=== PATIENT | male | born 1950 | race Caucasian/White ===

== ENCOUNTER 2017-02-09 09:15 | Emergency (ER) | payer MEDICARE, OTHER ==
--- NOTE | 2017-02-09 09:29 | Emergency Department Record ---
History of Present Illness - General Chief Complaint: Chest Pain Stated Complaint: CHEST PAIN Time Seen by Provider: 02/09/17 09:27 Source: Patient Mode of Arrival: Ambulatory Limitations: No limitations - History of Present Illness Initial Comments: The patient is here due to an 11.5 hour hx of chest discomfort. The pain is mainly in the lower chest and epigastric area. It is a dull pain that intermittently radiates to the back. He has had significant sweating and nausea with it and only mild RIGOBERTO. The patient has no known cardiac hx but does have significant risk factors of tobacco use, high cholesterol and family hx. He has no hx of similar issues with any hx of cardiac dz. MD Complaint: Chest pain Onset/Timin -: Hour(s) Onset: During rest Pain Location: Epigastric, Other Severity: Moderate Severity scale (1-10): 6 Quality: Dull Consistency: Constant Improves With: Nothing Worsens With: Nothing Anginal Symptoms: Nausea Treatments Prior to Arrival: Aspirin - Related Data Home Medications Medication Instructions Recorded Confirmed Last Taken No Home Med [NO HOME MEDS] 02/09/17 02/09/17 Unknown Allergies Allergy/AdvReac Type Severity Reaction Status Date / Time No Known Drug Allergies Allergy Verified 02/09/17 09:31 Travel Screening - Travel/Exposure Within Last 30 Days Have you traveled within the last 30 days?: No - Travel/Exposure Within Last Year Have you traveled outside the [place] in the last year?: No - Additonal Travel Details Have you been exposed to anyone with a communicable illness?: No Review of Systems Constitutional: Denies: Chills, Fever Eyes: Denies: Eye discharge ENT: Denies: Congestion Respiratory: Denies: Cough, Dyspnea Past Medical History - SOCIAL HISTORY Smoking Status: Current every day smoker Alcohol Use: None Drug Use: Heavy Drug Use Detail:: Marijuana - RESPIRATORY Hx Respiratory Disorders: No - CARDIOVASCULAR Hx Cardio Disorders: No - NEURO Hx Neuro Disorders: No - GI Hx GI Disorders: No - Hx Genitourinary Disorders: No - ENDOCRINE Hx Endocrine Disorders: No - MUSCULOSKELETAL Hx Musculoskeletal Disorders: Yes Hx Gout: Yes - PSYCH Hx Psych Problems: No - HEMATOLOGY/ONCOLOGY Hx Hematology/Oncology Disorders: No Family Medical History Any Significant Family History?: No Physical Exam - General General Appearance: Alert, Oriented x3, Cooperative, No acute distress - Head Head exam: Atraumatic, Normocephalic, Normal inspection - Eye Eye exam: Normal appearance, PERRL - Neck Neck exam: Normal inspection, Full ROM. negative: Tenderness - Respiratory Respiratory exam: Normal lung sounds bilaterally. negative: Respiratory distress - Cardiovascular Cardiovascular Exam: Regular rate, Normal rhythm, Normal heart sounds - GI/Abdominal GI/Abdominal exam: Soft, Normal bowel sounds. negative: Tenderness - Extremities Extremities exam: Normal inspection, Full ROM, Normal capillary refill. negative: Tenderness - Neurological Neurological exam: Alert, Normal gait. negative: Abnormal gait, Motor sensory deficit - Psychiatric Psychiatric exam: negative: Agitated, Anxious Course Vital Signs 02/09/17 09:17 Temperature 97.6 F Pulse Rate 62 Respiratory 16 Rate Blood Pressure 131/79 Pulse Ox 98 - Reevaluation(s) Reevaluation #1: The patient is resting comfortably but is still having mild discomfort and pressure. We will be starting a Nitro drip and Heparin drip due to the high probability of the patient's pain being cardiac in origin. I did discuss these issues with the patient and did recommend transfer to a larger hospital. He would like to go to [facility]. 02/09/17 09:57 02/09/17 10:39 Reevaluation #2: The patient is doing better at this time. He is resting comfortably with decreased pain. 02/09/17 10:12 02/09/17 10:39 Reevaluation #3: The patient is doing well. His pain is slightly improved. I did discuss the case with Dr. 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 in the CCU. 2nd EKG: NSR at 55, Q waves II, III, and AVF. Slight ST elevation lead III only. 02/09/17 10:20 02/09/17 10:29 Reevaluation #4: The patient is resting comfortably with no pain presently. He has very minor pressure at this time but is a lot better and very relaxed. We are presently transferring him. 02/09/17 10:38 Medical Decision Making - Data Complexity MDM Data: X-Ray Ordered and/or Reviewed, EKG Ordered and/or Reviewed - Lab Data Result diagrams: 02/09/17 09:30 02/09/17 09:30 - EKG Data -: EKG Interpreted by Me (NSR at 55, 1/[address] elevation lead III only. Q waves in II, III, and AVF.) - Radiology Data Radiology results: Report reviewed (CXR: Neg.) Disposition Disposition: Transfer Clinical Impression: Acute myocardial infarction Qualifiers: Myocardial infarction ST status: non-ST elevation myocardial infarction Qualified Code(s): I21.4 - Non-ST elevation (NSTEMI) myocardial infarction Disposition: Acute Care Hospital Transfer Transfer To: [facility] Reason For Transfer: [place] Accepting Physician: Link Time Discussed w/Accepting Physician: 10:22 Condition: (2) Stable Forms: Patient Portal Access Time of Disposition: :22
[2017-02-09] MEDS ORDERED: MORPHINE SULFATE 5 MG/ML PFS IVP ONE ×2 (09:37→10:35)
[2017-02-09] MEDS ORDERED: ASPIRIN 81 MG CHEWABLE TABLET PO ONE (09:37)
[2017-02-09] MEDS ORDERED: 0.9 % SODIUM CHLORIDE 1,000 ML BAG IV ONE (09:41)
[2017-02-09] MEDS ORDERED: ONDANSETRON HCL IV 4 MG/2 ML VIAL IVP ONE (09:41)
[2017-02-09] MEDS ORDERED: HEPARIN SODIUM 1000 UNIT/1 ML 10ML VIAL IVP ONE (09:53)
[2017-02-09 09:57] LABS: HEMATOCRIT 46.3 % (42.0-52.0); HEMOGLOBIN 15.4 gm/dl (14.0-18.0); MEAN CELL VOLUME 89.9 fl (81-97); MEAN CORPUSCULAR HEMOGLOBIN 29.9 pg (27-33); MEAN CORPUSCULAR HGB CONC 33.3 g/dl (32-36); MEAN PLATELET VOLUME 10.7 fl (7.4-10.4); PLATELET COUNT 264 K/uL (130-400); RED BLOOD COUNT 5.15 M/uL (4.40-5.70); RED CELL DISTRIBUTION WIDTH 13.9 % (11.5-14.5)
[2017-02-09] MEDS ORDERED: NITROGLYCERIN/D5W 50 MG in DEXTROSE 5 % IN WATER 1 BAG IV SCH ×2 (10:00)
[2017-02-09] MEDS ORDERED: HEPARIN SODIUM/D5W 25,000 UNITS in DEXTROSE 5 % IN WATER 1 BAG IV SCH ×2 (10:00)
[2017-02-09] MEDS ORDERED: HEPARIN SODIUM 5,000 UNIT/ML VIAL SQ ONE (10:04)
[2017-02-09 10:05] LABS: ANION GAP 6.3 (7-16); BLOOD UREA NITROGEN 20 mg/dL (9-20); CARBON DIOXIDE 26.7 mmol/L (22-30); CREATINE PHOSPHOKINASE 987 U/L (55-170); EST GLOMERULAR FILTRATION RATE > 60 ml/min; GLUCOSE,RANDOM 168 mg/dL (70-110)
[2017-02-09 10:06] LABS: INR 0.89; PARTIAL THROMBOPLASTIN TIME 25.5 SECONDS (24.5-39.1); PROTHROMBIN TIME (PATIENT) 10.1 SECONDS (9.5-12.1)
[2017-02-09 10:09] LABS: PLATELET ESTIMATE NORMAL (NORMAL)
[2017-02-09 10:17] LABS: CKMB 89.5 ug/L (0-6)
[2017-02-09 10:36] LABS: CKMB RELATIVE INDEX 9.07 % (0-4)
--- NOTE | 2017-02-13 07:58 | RADIOLOGY REPORT ---
EXAM: AP CHEST HISTORY: DIFFICULTY IN BREATHING. TECHNIQUE: A single AP view of the chest was performed. FINDINGS: The heart size is normal. No pulmonary vascular congestion. No infiltrate or pleural effusion. The osseous structures are normal. IMPRESSION: NEGATIVE CHEST EXAMINATION. JOB NUMBER: [id number] MTDD
== END 2017-02-09 10:59 | disposition short-term general hospital (02) ==
LOC: ER 09:15
DX: I21.4 Non-ST elevation (NSTEMI) myocardial infarction (principal); R06.00 Dyspnea, unspecified; R10.13 Epigastric pain; R11.0 Nausea; F17.210 Nicotine dependence, cigarettes, uncomplicated
CPT/HCPCS: 99285 ×2; 96376; 96365; 96366; 96375; 96368; 82550; 85730; 85610; 82553; 84484; 80048; 85027; 71010; 93005; 93010; J2405; J2270; J7030